=== PATIENT | female | born 1930 | race Caucasian/White ===

== ENCOUNTER 2020-10-18 06:33 | Inpatient (IN) ==
--- NOTE | 2020-10-18 07:32 | Emergency Department Note ---
Abdominal Pain HPI General Chief Complaint: Abdominal Pain Stated Complaint: ABD pain Time Seen by Provider: 10/18/20 07:10 Source: patient and EMS Mode of arrival: EMS Limitations: no limitations History of Present Illness HPI Narrative: 89-year-old female rise from assisted with chief complaint left lower quadrant/groin pain. History is somewhat limited due to patient being very hard of hearing. The pain has been present since last night. Pain is worse with movement. Patient denies any nausea vomiting diarrhea denies any urinary frequency urgency or dysuria. Denies any hematuria. Denies any radiati on of the pain. Denies chest pain or shortness of breath. Patient denies any known injury. Review of records show patient has a history of tubulovillous adenoma of the colon. Related Data Home Medications Medication Instructions Recorded Confirmed potassium chloride 10 mEq 10 meq PO QDAY 12/05/18 07/09/20 tablet,extended release acetaminophen 650 mg 650 mg PO Q6H PRN tab 12/04/19 07/09/20 tablet,extended release Previous Rx's Medication Instructions Recorded cholecalciferol (vitamin D3) 50 2,000 unit PO QAM #180 cap 06/27/19 mcg (2,000 unit) capsule azithromycin 250 mg tablet See Rx Instructions PO .COMPLEX #6 08/19/20 tab lisinopril 10 mg tablet See Rx Instructions PO .COMPLEX 08/25/20 #90 tab lisinopril 20 mg tablet See Rx Instructions .ROUTE 08/25/20 .COMPLEX #30 tab amlodipine 2.5 mg tablet 5 mg PO QHS #60 tab 09/03/20 cholecalciferol (vitamin D3) 50 50 mcg PO QDAY #30 tab 09/03/20 mcg (2,000 unit) tablet citalopram 20 mg tablet 20 mg PO QAM #30 tab 09/03/20 ferrous gluconate 324 mg (38 mg 324 mg PO TID #90 tab 09/03/20 iron) tablet furosemide 20 mg tablet 20 mg PO .COMPLEX #75 tab 09/03/20 omeprazole 20 mg capsule,delayed 20 mg PO QDAY #30 cap 09/03/20 release sitagliptin 100 mg tablet 100 mg PO QDAY #30 tab 09/03/20 spironolactone 25 mg tablet 12.5 mg PO QDAY #15 tab 09/03/20 vit A 1,000 unit-C 200 mg-E 60 1 tab PO QDAY #30 tab 09/03/20 unit-lutein 2 mg and minerals tablet Allergies Allergy/AdvReac Type Severity Reaction Status Date / Time No Known Drug Allergies Allergy Verified 10/18/20 06:59 Review of Systems ROS ROS Narrative: Narrative: All systems ED: reviewed and negative except as stated. Constitutional: Denies fever, chills and sweats Eyes: Denies vision change Cardiovascular: Denies chest pain Respiratory: Denies shortness of breath and cough Gastrointestinal: Reports abdominal pain; Denies vomiting and diarrhea Musculoskeletal: Denies back pain and joint pain Integumentary: Denies rash Neurological: Denies headache and dizziness Endocrine: Denies polydipsia and polyuria Hematological/Lymphatic: Denies easy bleeding and easy bruising PFSH Narrative Patient History Narrative: Narrative: Medical/Surgical/Family History All Active Problems (Updated 10/18/20 @ 09:45 by Jeronimo Peralta MD) Acute hyperkalemia (Acute) Acute left lower quadrant pain (Acute) Muscle weakness (generalized) (Acute) Fibrocystic breast changes (Chronic) Esophageal stricture (Chronic) Anxiety (Chronic) 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) Well adult exam (Chronic) Emotional crisis, acute reaction to stress (Chronic) Special screening for malignant neoplasm of vagina (Chronic) Anxiety and depression (Chronic) Screening for vaginal cancer (Chronic) Abnormal mammogram (Chronic) Tubulovillous adenoma of colon (Chronic) GERD (gastroesophageal reflux disease) (Chronic) Arthritis, rheumatoid (Chronic) Hyperlipidemia, unspecified (Chronic) HTN (hypertension), benign (Chronic) Fibroadenoma of breast (Chronic) Skin lesion (Chronic) Fatigue (Chronic) Arthritis of both hands (Chronic) Weight loss (Chronic) Vitamin D deficiency (Chronic) Stress (Chronic) Vitamin B12 deficiency (Chronic) Hypothyroidism (Chronic) Dizziness (Chronic) Urinary tract infection (Chronic) Hyperparathyroidism, unspecified (Chronic) Hypercalcemia (Chronic) HTN (hypertension) (Chronic) Encounter for long-term (current) use of medications (Chronic) Anemia, iron deficiency (Chronic) Stasis ulcer (Chronic) Cellulitis (Chronic) Fluid retention (Chronic) Ulcer of left lower leg (Chronic) Dermatitis, unspecified (Chronic) Tinea unguium (Chronic) Edema (Chronic) Erythematous condition, unspecified (Chronic) 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) Medical History (Updated 10/18/20 @ 09:45 by Jeronimo Perlata MD) Abnormal mammogram Anemia, iron deficiency Anxiety Anxiety and depression Anxiety with depression Arthritis of both hands Arthritis, rheumatoid Cellulitis Dermal mycosis Dermatitis, unspecified Dizziness Edema Emotional crisis, acute reaction to stress Encounter for long-term (current) use of medications Erythematous condition, unspecified Esophageal stricture Fatigue Fibroadenoma of breast Fibrocystic breast changes Fluid retention GERD (gastroesophageal reflux disease) HTN (hypertension) HTN (hypertension), benign Hypercalcemia Hyperglycemia due to type 2 diabetes mellitus Hyperlipidemia, unspecified Hyperparathyroidism, unspecified Hypothyroidism Osteoarthritis involving multiple joints on both sides of body Screening for vaginal cancer Skin lesion Special screening for malignant neoplasm of vagina Stasis ulcer Stress Tinea unguium Tubulovillous adenoma of colon Ulcer of left lower leg Urinary tract infection Vitamin B12 deficiency Vitamin D deficiency Weight loss Well adult exam Surgical History History of bilateral knee replacement Hx of appendectomy Hx of cholecystectomy (~1996) Hx of colonoscopy (~01/20/06) colonic polyps Hx of hysterectomy Family History Other No pertinent family history Social History Smoking Status: Never smoker Exam Narrative Narrative: Vital Signs reviewed. Constitutional: Awake alert no acute distress well-nourished well-developed Head: Normocephalic, atraumatic Eyes: PERRLA, EOMI, no conjunctivitis Ear: Normal canals and TM's Oropharynx: moist oral mucosa, no edema, no erythema, no exudate Neck: Supple, no lymphadenopathy, no JVD Lungs: Breathing unlabored, lungs clear Cardiac: Regular rate and rhythm, normal distal pulses, GI: Soft tenderness left lower quadrant/groin no obvious hernia nondistended no guarding no rebound Musculoskeletal: No tenderness, no deformities, no edema, full range of motion Back: no CVA or midline tenderness Neuro: Awake alert, cranial nerves II through XII grossly intact, no focal motor or sensory deficits, very hard of hearing Psychiatric: Normal mood and affect Skin: Warm dry no rash, cap refill less than 2 seconds General Limitations: no limitations Course Consultations Consultation #1: Case discussed with Dr. Deluca hospitalist who agrees to admit patient and Requested I place transition orders. He requested patient be admitted as an inpatient. Time: 10:37 Vital Signs Vital signs: Vital Signs Temperature 97.3 F 10/18/20 06:39 Pulse Rate 81 10/18/20 06:39 Respiratory Rate 18 10/18/20 06:39 Blood Pressure 128/71 10/18/20 06:39 Pulse Oximetry (%) 95 10/18/20 06:39 Temperature 97.3 F 10/18/20 06:39 Pulse Rate 74 10/18/20 10:11 Respiratory Rate 12 10/18/20 10:11 Blood Pressure 112/58 10/18/20 10:01 Pulse Oximetry (%) 96 10/18/20 10:11 MDM MDM Narrative Medical decision making narrative: 89-year-old presents with acute onset left groin left lower quadrant abdominal pain. Patient is tender in her left groin. Labs show normal white blood cell count hemoglobin 9.8 metabolic profile notable for sodium 131 potassium six-point CO2 21 BUN 37 creatinine 1.[address] scan of the abdomen did not reveal a cause for pain in her left lower quadrant/left groin. Hyperkalemia was treated with amp of D50, insulin and Kayexalate. Patient required a dose of morphine help with the pain. Patient will be admitted for further evaluation and treatment of the hyperkalemia and pain control. Discussed with the hospitalist, Dr. Deluca who agrees to admit patient. Differential Diagnosis Differential Diagnosis: Hernia, bowel obstruction, diverticulitis, UTI, musculoskeletal Lab Data Result diagrams: 10/18/20 07:26 10/18/20 07:26 Labs: Lab Results 10/18/20 10/18/20 10/18/20 Range/Units 07: 07:26 09:20 WBC 7.2 (4.5-11.0) K/mcL RBC 3.70 L (4.00-5.20) M/mcL Hgb 9.8 L (12.0-15.0) g/dL Hct 32.5 L (36.0-48.0) % MCV 87.8 (80.0-100.0) fL MCH 26.5 (26.0-34.0) pg MCHC 30.2 L (31.0-36.0) g/dL RDW 16.1 H (11.5-14.5) % Plt Count 332 (140-440) K/mcL MPV 9.4 (7.4-10.4) fL Seg Neutrophils % 69 (38-78) % Band Neutrophils % 2 (0-10) % Lymphocytes % 24 (15-49) % Monocytes % (Manual) 4 (1-12) % Eosinophils % (Manual) 1 (0-7) % Platelet Estimate Normal (Normal) RBC Morphology Abnormal A (Normal) Anisocytosis 1+ A (None Seen) Sodium 131 L (133-145) mmol/L Potassium 6.0 H* (3.3-5.1) mmol/L Chloride 99 (96-108) mmol/L Carbon Dioxide 21 L (22-30) mmol/L Anion Gap 11.0 (8.0-16.0) BUN 37 H (8-23) mg/dL Creatinine 1.3 H (0.6-1.1) mg/dL POC Creatinine 1.7 H (0.6-1.2) mg/dL GFR Calculation 36 Glucose 120 H (70-105) mg/dL Calcium 10.5 H (8.6-10.4) mg/dL Total Bilirubin 0.5 (0.1-1.0) mg/dL AST 9 (<32) U/L ALT < 5 (<40) U/L Alkaline Phosphatase 81 (39-117) U/L Total Protein 7.6 (5.9-8.4) gm/dL Albumin 3.5 (3.2-5.2) gm/dL Globulin 4.1 H (2.2-3.7) gm/dL Albumin/Globulin Ratio 0.9 L (1.0-2.3) Lipase 27 (7-60) U/L Urine Color Yellow Urine Appearance Clear (Clear) Urine pH 7.0 (5.0-9.0) Ur Specific [place] 1.010 (1.000-1.035) Urine Protein Negative (Negative) mg/dL Urine Glucose (UA) Negative (Negative) mg/dL Urine Ketones Negative (Negative) mg/dL Urine Occult Blood Negative (Negative) mg/dL Urine Nitrate Negative (Negative) Urine Bilirubin Negative (Negative) mg/dL Urine Urobilinogen 2.0 A mg/dL Ur Leukocyte Esterase Negative (Negative) /ug Urine RBC < 1 (0-3) /hpf Urine WBC 1 (0-4) /hpf Ur Squamous Epith Cells 1 (0-4) /hpf Ur Transition Epith Cell < 1 (0-2) /hpf Urine Bacteria None (0) /hpf Ur Culture Indicated? No EKG Data EKG #1: EKG attestation: Yes I reviewed and interpreted this EKG. and Yes There are no EKG findings of acute coronary syndrome EKG results narrative: EG performed at 7:30 AM shows normal sinus rhythm normal axis normal intervals no ectopy and normal ST segments Discharge Plan Patient/Caregiver Discharge Instructions Pt seen by [employer] WORKER/PA only: No Clinical Impression: Acute hyperkalemia, Acute left lower quadrant pain Patient Disposition: Xfer As Inpt ([facility]) Condition: Good Follow up with: Gloria Montana ARNP [Primary Care Provider] - Prescriptions: No Action cholecalciferol (vitamin D3) 50 mcg (2,000 unit) capsule 2,000 unit PO QAM Qty: 180 RF: 4 acetaminophen [Tylenol Arthritis Pain] 650 mg tablet extended release 650 mg PO Q6H PRNRF: 0 azithromycin [Zithromax Z-Vijay] 250 mg tablet See Rx Instructions PO .COMPLEX Qty: 6 RF: 0 lisinopril 10 mg tablet See Rx Instructions PO .COMPLEX Qty: 90 RF: 4 lisinopril 20 mg tablet See Rx Instructions .ROUTE .COMPLEX Qty: 30 RF: 6 amlodipine [Norvasc] 2.5 mg tablet 5 mg PO QHS Qty: 60 RF: 12 citalopram [Celexa] 20 mg tablet 20 mg PO QAM Qty: 30 RF: 12 ferrous gluconate 324 mg (38 mg iron) tablet 324 mg (38 mg iron) tablet 324 mg PO TID Qty: 90 RF: 12 Januvia 100 mg tablet 100 mg PO QDAY Qty: 30 RF: 12 furosemide [Lasix] 20 mg tablet 20 mg PO .COMPLEX Qty: 75 RF: 12 omeprazole 20 mg capsule,delayed release(DR/EC) 20 mg PO QDAY Qty: 30 RF: 12 spironolactone 25 mg tablet 12.5 mg PO QDAY Qty: 15 RF: 12 Vision Formula (with lutein) 1,000 unit-200 mg-60 unit-2 mg tablet 1 tab PO QDAY Qty: 30 RF: 12 cholecalciferol (vitamin D3) 50 mcg (2,000 unit) tablet 50 mcg PO QDAY Qty: 30 RF: 12 potassium chloride 10 mEq tablet extended release 10 meq PO QDAY RF: 0 Hold Instructions: Doctor's Order
[2020-10-18 07:34] LABS: POC Creatinine 1.7 mg/dL (0.6-1.2)
[2020-10-18 08:01] LABS: Hematocrit 32.5 % (36.0-48.0); Hemoglobin 9.8 g/dL (12.0-15.0); Mean Cell Volume 87.8 fL (80.0-100.0); Mean Corpuscular HGB Conc 30.2 g/dL (31.0-36.0); Mean Platelet Volume 9.4 fL (7.4-10.4); Platelet Count 332 K/mcL (140-440); Red Cell Distribution Width 16.1 % (11.5-14.5); WBC 7.2 K/mcL (4.5-11.0)
[2020-10-18 08:26] LABS: ALT/SGPT < 5 U/L (<40); AST/SGOT 9 U/L (<32); Albumin 3.5 gm/dL (3.2-5.2); Albumin/Globulin Ratio 0.9 (1.0-2.3); Alkaline Phosphatase 81 U/L (39-117); Bilirubin,Total 0.5 mg/dL (0.1-1.0); Blood Urea Nitrogen 37 mg/dL (8-23); Calcium 10.5 mg/dL (8.6-10.4); Carbon Dioxide 21 mmol/L (22-30); Chloride 99 mmol/L (96-108); Globulin 4.1 gm/dL (2.2-3.7); Glomerular Filtration Rate 36; Glucose 120 mg/dL (70-105)
[2020-10-18 08:29] LABS: Anisocytosis 1+ (None Seen); Band Neutrophils % 2 % (0-10); Eosinophils % (Manual) 1 % (0-7); Lymphocytes % 24 % (15-49); Monocytes % (Manual) 4 % (1-12); Platelet Estimate NORMAL (Normal); RBC Morphology ABNORMAL (Normal); Segmented Neutrophils % 69 % (38-78)
[2020-10-18] MEDS ORDERED: INSULIN REGULAR, HUMAN 1 UNIT/0.01 ML UNIT IV ONE (08:37)
[2020-10-18] MEDS ORDERED: SODIUM POLYSTYRENE SULFONATE 15 GM/60 ML SUSPENSION PO ONE (08:37)
[2020-10-18] MEDS ORDERED: DEXTROSE 50% 50 ML SYRINGE IV ONE (08:37)
[2020-10-18] MEDS ORDERED: 0.9 % SODIUM CHLORIDE 1,000 ML IV ONE (09:00)
--- NOTE | 2020-10-18 09:00 | Cat Scan Report ---
CLINICAL INFORMATION: Left lower quadrant pain. COMPARISON: None. TECHNIQUE: 0.625 mm helical slices were obtained from the mid heart through the subtrochanteric regions. Following reconstruction, 2.5 mm sagittal, coronal and axial reformatted images were processed and reviewed at bone and soft tissue windows.The exam was performed using radiation dose optimization techniques including, but not limited to, automated exposure control, adjustment of the mA and/or kV according to patient size and use of iterative reconstruction technique. FINDINGS: Lung bases show scattered subsegmental atelectasis in the lower lobes. There are no pleural effusions. A large hiatal hernia consisting entire gastric fundus and body has transmigrated into the middle mediastinum. The heart is moderately enlarged with heavy mitral annular and valvular calcification. Abdominal images show a 6 mm calcified granuloma in the superior right hepatic lobe. No significant hepatic abnormality. The gallbladder is surgically absent. Intrahepatic and common bile ducts are normal caliber: CBD is 5 mm. The noncontrasted pancreas, both adrenal glands, spleen and aorta are normal in size, configuration and attenuation without focal lesion. Both noncontrasted kidneys are normal and symmetric in size, position, degeneration and attenuation: the right is 10.6 cm in length and the left is 10 cm in length. A 4 mm nonobstructing stone is present within a inferior calyx left kidney. A 2-3 punctate nonobstructing stones within the mid and superior calyces of the left kidney are all less than than 2 mm. Few cysts seen in both kidneys. There is no free air, free fluid or adenopathy Pelvic images show hysterectomy and oophorectomy changes. Urinary bladder is normal. The stomach, small large bowel grossly normal. Bone windows show degenerative changes in the lumbar spine there are no focal osseous lesions. IMPRESSION: 1. No acute disease. 2. Small nonobstructing stones in the calyces of both kidneys. Both kidneys are, otherwise, normal. 3. Small (2.2 cm) right periumbilical hernia containing the anterior wall of a short segment of mid transverse colon 4. Large hiatal hernia with the gastric fundus and body. It has transmigrated into the middle mediastinum. Interpreted and Authenticated by: Bola Greco 10/18/20
[2020-10-18] MEDS ORDERED: ONDANSETRON 4 MG/2 ML VIAL IV ONE (09:19)
[2020-10-18] MEDS ORDERED: morphine 2 MG/ML VIAL IV ONE ×2 (09:19→12:23)
[2020-10-18 10:17] LABS: Appearance,Urine CLEAR (Clear); Bilirubin,Urine Negative (Negative); Color,Urine YELLOW; Culture Indicated,Urine No; Glucose,Urine (UA) Negative (Negative); Ketones,Urine Negative (Negative); Leukocyte Esterase,Urine Negative /ug (Negative); Nitrate,Urine Negative (Negative); Protein,Urine Negative (Negative); Urine Blood Negative (Negative); Urine RBC < 1 /hpf (0-3); Urine Squamous Epithelial Cell 1 /hpf (0-4); Urine Transitional Epi Cells < 1 /hpf (0-2); Urine WBC 1 /hpf (0-4)
[2020-10-18] MEDS ORDERED: ONDANSETRON 4 MG/2 ML VIAL IV PRN ×2 (10:34→11:44)
[2020-10-18] MEDS: morphine 2 MG/ML VIAL IV PRN (11:12)
--- NOTE | 2020-10-18 11:42 | Internal Med History&Physical ---
HPI History of Present Illness Patient information: Note initiated : 10/18/20 at 11:28 am Service Date, if different from initiated Date: [] Patient: Vanessa Roblero a 89 y/o F admitted on for Abdominal Pain . Chief Complaint: [] History of present illness: Ms. Roblero is a 89 year old F Presents to the ED from [facility] for left lower quadrant pain /groin pain. History is extremely difficult to obtain from patient history of severe hearing impairment but per her and her brother sounds like she had pain develop at midnight and at sharp. CT abdomen pelvis unremarkable Further work-up revealed mild hyponatremia and hyperkalemia although she is on lisinopril and potassium supplementation. 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) Well adult exam (Chronic) Emotional crisis, acute reaction to stress (Chronic) Special screening for malignant neoplasm of vagina (Chronic) Anxiety and depression (Chronic) Screening for vaginal cancer (Chronic) Abnormal mammogram (Chronic) Tubulovillous adenoma of colon (Chronic) GERD (gastroesophageal reflux disease) (Chronic) Arthritis, rheumatoid (Chronic) Hyperlipidemia, unspecified (Chronic) HTN (hypertension), benign (Chronic) Fibroadenoma of breast (Chronic) Skin lesion (Chronic) Fatigue (Chronic) Arthritis of both hands (Chronic) Weight loss (Chronic) Vitamin D deficiency (Chronic) Stress (Chronic) Vitamin B12 deficiency (Chronic) Hypothyroidism (Chronic) Dizziness (Chronic) Urinary tract infection (Chronic) Hyperparathyroidism, unspecified (Chronic) Hypercalcemia (Chronic) HTN (hypertension) (Chronic) Encounter for long-term (current) use of medications (Chronic) Anemia, iron deficiency (Chronic) Stasis ulcer (Chronic) Cellulitis (Chronic) Fluid retention (Chronic) Ulcer of left lower leg (Chronic) Dermatitis, unspecified (Chronic) Tinea unguium (Chronic) Edema (Chronic) Erythematous condition, unspecified (Chronic) 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) Medical History (Updated 10/18/20 @ 09:45 by Jeronimo Peralta MD) Abnormal mammogram Anemia, iron deficiency Anxiety Anxiety and depression Anxiety with depression Arthritis of both hands Arthritis, rheumatoid Cellulitis Dermal mycosis Dermatitis, unspecified Dizziness Edema Emotional crisis, acute reaction to stress Encounter for long-term (current) use of medications Erythematous condition, unspecified Esophageal stricture Fatigue Fibroadenoma of breast Fibrocystic breast changes Fluid retention GERD (gastroesophageal reflux disease) HTN (hypertension) HTN (hypertension), benign Hypercalcemia Hyperglycemia due to type 2 diabetes mellitus Hyperlipidemia, unspecified Hyperparathyroidism, unspecified Hypothyroidism Osteoarthritis involving multiple joints on both sides of body Screening for vaginal cancer Skin lesion Special screening for malignant neoplasm of vagina Stasis ulcer Stress Tinea unguium Tubulovillous adenoma of colon Ulcer of left lower leg Urinary tract infection Vitamin B12 deficiency Vitamin D deficiency Weight loss Well adult exam Surgical History History of bilateral knee replacement Hx of appendectomy Hx of cholecystectomy (~1996) Hx of colonoscopy (~01/20/06) colonic polyps Hx of hysterectomy Family History Other No pertinent family history Social History (Updated 08/04/19 @ 10:24 by DANII Moura) marital status: occupational status: retired [employer] Home Medications and Allergies Home Medications Medication Instructions Recorded Confirmed Type potassium chloride 10 mEq 10 meq PO QDAY 12/05/18 07/09/20 History tablet,extended release cholecalciferol (vitamin D3) 50 2,000 unit PO QAM #180 cap 06/27/19 07/09/20 Rx mcg (2,000 unit) capsule acetaminophen 650 mg 650 mg PO Q6H PRN tab 12/04/19 07/09/20 History tablet,extended release azithromycin 250 mg tablet See Rx Instructions PO .COMPLEX #6 08/19/20 Rx tab lisinopril 10 mg tablet See Rx Instructions PO .COMPLEX 08/25/20 Rx #90 tab lisinopril 20 mg tablet See Rx Instructions .ROUTE 08/25/20 Rx .COMPLEX #30 tab amlodipine 2.5 mg tablet 5 mg PO QHS #60 tab 09/03/20 Rx cholecalciferol (vitamin D3) 50 50 mcg PO QDAY #30 tab 09/03/20 Rx mcg (2,000 unit) tablet citalopram 20 mg tablet 20 mg PO QAM #30 tab 09/03/20 Rx ferrous gluconate 324 mg (38 mg 324 mg PO TID #90 tab 09/03/20 Rx iron) tablet furosemide 20 mg tablet 20 mg PO .COMPLEX #75 tab 09/03/20 Rx omeprazole 20 mg capsule,delayed 20 mg PO QDAY #30 cap 09/03/20 Rx release sitagliptin 100 mg tablet 100 mg PO QDAY #30 tab 09/03/20 Rx spironolactone 25 mg tablet 12.5 mg PO QDAY #15 tab 09/03/20 Rx vit A 1,000 unit-C 200 mg-E 60 1 tab PO QDAY #30 tab 09/03/20 Rx unit-lutein 2 mg and minerals tablet Allergies Allergy/AdvReac Type Severity Reaction Status Date / Time No Known Drug Allergies Allergy Verified 10/18/20 06:59 EXAM Constitutional Vitals: Temp Pulse Resp BP Pulse Ox 97.3 F 72 10 L 121/59 97 10/18/20 06:39 10/18/20 10:52 10/18/20 10:52 10/18/20 10:46 10/18/20 10:52 Exam: General: Alert, Awake, No acute Distress Eyes/N/T: EOMI, PERRL, dry MM Head/Neck: neck supple, normocephalic atraumatic CV: RRR, No murmurs, normal s1/s2 Pulm: Clear b/l, no wheezing/rhonchi/rales Abd: soft, nontender, +BS x4 Ext: no clubbing/cyanosis/edema, no pain to palp of lateral hip Neuro: Alert, no focal deficits, moves all extremities, CN 2-12 grossly intact, symmetrical strength b/l upper/lower, sensations intact b/l upper/lower Skin: warm/dry DATA Data Completed and Pending Labs: Labs from last 24 hours 10/18/20 10/18/20 10/18/20 09:20 07:26 07:26 WBC 7.2 RBC 3.70 L Hgb 9.8 L Hct 32.5 L MCV 87.8 MCH 26.5 MCHC 30.2 L RDW 16.1 H Plt Count 332 MPV 9.4 Seg Neutrophils % 69 Band Neutrophils % 2 Lymphocytes % 24 Monocytes % (Manual) 4 Eosinophils % (Manual) 1 Platelet Estimate Normal RBC Morphology Abnormal A Anisocytosis 1+ A Sodium 131 L Potassium 6.0 H* Chloride 99 Carbon Dioxide 21 L Anion Gap 11.0 BUN 37 H Creatinine 1.3 H POC Creatinine 1.7 H GFR Calculation 36 Glucose 120 H Calcium 10.5 H Total Bilirubin 0.5 AST 9 ALT < 5 Alkaline Phosphatase 81 Total Protein 7.6 Albumin 3.5 Globulin 4.1 H Albumin/Globulin Ratio 0.9 L Lipase 27 Urine Color Yellow Urine Appearance Clear Urine pH 7.0 Ur Specific [place] 1.010 Urine Protein Negative Urine Glucose (UA) Negative Urine Ketones Negative Urine Occult Blood Negative Urine Nitrate Negative Urine Bilirubin Negative Urine Urobilinogen 2.0 A Ur Leukocyte Esterase Negative Urine RBC < 1 Urine WBC 1 Ur Squamous Epith Cells 1 Ur Transition Epith Cell < 1 Urine Bacteria None Ur Culture Indicated? No A/P Narrative A/P Narrative: A: *Hyperkalemia: On ACEI and potassium supplements *Hyponatremia: *ACE on CKD III: *Left groin pain: ?kidney stone -CT a/p unremarkable other than DJD and small non-obstructing stones left kidney -UA no blood and unremarkable *Hypercalcemia, mild: On vitamin D supplementation *HTN: On Norvasc/lisinopril, Lasix/Aldactone *Depression/anxiety: On SSRI *GERD: *DM: P: -IVF -f/u electrolytes -?MRI pelvis, will start with renal u/s evaluate ureter for stones -hold ACEI, con norvasc -Hold diuretics and d/c potassium supplementation -d/c vitamin D supplementation -SSI -pt/ot -ppx: Lovenox/home PPI Time Spent With Patient Time: Total time spent is greater than 50% in coordination of care (as katie edwards) at patient's floor/unit and/or counseling patient:
[2020-10-18] MEDS ORDERED: POTASSIUM CHLORIDE 40 MEQ in DEXTROSE 5% IN WATER 500 ML IV PRN (11:44)
[2020-10-18] MEDS ORDERED: IPRATROPIUM/ALBUTEROL 3 ML AMPUL.NEB NEB PRN (11:44)
[2020-10-18] MEDS ORDERED: SENNOSIDES 1 TABLET PO PRN (11:44)
[2020-10-18] MEDS ORDERED: POTASSIUM CHLORIDE 20 MEQ TABLET PO PRN ×2 (11:44)
[2020-10-18] MEDS ORDERED: MAGNESIUM SULFATE 2 GM/50 ML BAG IV PRN (11:44)
[2020-10-18] MEDS ORDERED: POLYETHYLENE GLYCOL 3350 17 GM PACKET PO PRN (11:44)
[2020-10-18 11:51] LABS: POC Blood Urea Nitrogen 35 mg/dL (6-20); POC CO2 21 mmol/L (22-30); POC Calcium, Ionized 1.28 mmEq/L (1.16-1.32); POC Chloride 110 mEq/L (96-108); POC Creatinine 1.3 mg/dL (0.6-1.2); POC Glucose, Random 100 mg/dL (70-105); POC Hematocrit 33 % (36-48); POC Potassium 5.7 mEql/L (3.3-5.1); POC Sodium 137 mEq/L (133-145)
[2020-10-18] MEDS: 0.9 % SODIUM CHLORIDE 10 ML SYRINGE IV SCH ×2 (13:12→21:04)
[2020-10-18] MEDS: 0.9 % SODIUM CHLORIDE 1,000 ML IV SCH (13:19)
[2020-10-18] MEDS: HYDROcodone/APAP 5/325MG TABLET PO PRN (13:28)
--- NOTE | 2020-10-18 13:40 | EKG ---
[facility] Test Date: 2020-10-18 Pat Name: Vanessa Roblero Department: ED Room: Gender: Female [place] [employer]: TOMASZ : [id number] Requested By: Jeronimo Peralta Order Number: [id number] Reading MD: Deangelo Root M.D. Measurements Intervals [place] Rate: 72 P: 44 KS: 180 QRS: 10 QRSD: 76 T: 37 QT: 380 QTc: 416 Interpretive Statements SINUS RHYTHM NO PRIOR TRACING FOR COMPARISON EARLY R-WAVE TRANSITION, V1-V2 BORDERLINE TRACING Electronically Signed On 10-18-2020 13:40:43 PDT by Deangelo Root M.D. /[id number]/[email or web address]/[id number]
[2020-10-18] MEDS ORDERED: DEXTROSE 31 GM ORAL.SUSP PO PRN (15:24)
[2020-10-18] MEDS ORDERED: DEXTROSE 50% 50 ML VIAL IV PRN (15:24)
[2020-10-18] MEDS: INSULIN LISPRO 1 UNIT/0.01 ML UNIT SQ SCH ×2 (17:00→20:42)
[2020-10-18] MEDS: DOCUSATE SODIUM 100 MG CAPSULE PO SCH (20:43)
[2020-10-18] MEDS ORDERED: amLODIPine 5 MG TABLET PO SCH (21:00)
[2020-10-19] MEDS: 0.9 % SODIUM CHLORIDE 1,000 ML IV SCH ×2 (01:20→09:15)
[2020-10-19] MEDS: 0.9 % SODIUM CHLORIDE 10 ML SYRINGE IV SCH ×3 (05:32→20:58)
[2020-10-19 06:58] LABS: Basophils # (Auto) 0.03 K/mcL (0.00-0.20); Basophils % (Auto) 0.5 % (0.0-2.0); Eosinophils # (Auto) 0.13 K/mcL (0.00-0.70); Eosinophils % (Auto) 2.3 % (0.0-7.0); Hemoglobin 9.2 g/dL (12.0-15.0); Lymphocytes # (Auto) 0.83 K/mcL (1.50-4.80); Lymphocytes % (Auto) 14.5 % (15.0-49.0); Mean Cell Volume 90.4 fL (80.0-100.0); Mean Corpuscular HGB Conc 28.8 g/dL (31.0-36.0); Mean Platelet Volume 9.5 fL (7.4-10.4); Monocytes % (Auto) 12.2 % (1.0-12.0); Neutrophils % (Auto) 70.5 % (38.0-78.0); Platelet Count 337 K/mcL (140-440); RBC 3.54 M/mcL (4.00-5.20); Red Cell Distribution Width 16.1 % (11.5-14.5); WBC 5.7 K/mcL (4.5-11.0)
[2020-10-19] MEDS: INSULIN LISPRO 1 UNIT/0.01 ML UNIT SQ SCH ×4 (07:21→20:21)
[2020-10-19 07:35] LABS: ALT/SGPT < 5 U/L (<40); AST/SGOT 11 U/L (<32); Albumin 3.1 gm/dL (3.2-5.2); Albumin/Globulin Ratio 0.8 (1.0-2.3); Alkaline Phosphatase 84 U/L (39-117); Bilirubin,Direct < 0.2 mg/dL (0-0.3); Bilirubin,Total 0.5 mg/dL (0.1-1.0); Blood Urea Nitrogen 22 mg/dL (8-23); Calcium 10.2 mg/dL (8.6-10.4); Carbon Dioxide 21 mmol/L (22-30); Chloride 107 mmol/L (96-108); Globulin 3.8 gm/dL (2.2-3.7); Glomerular Filtration Rate 57; Glucose 109 mg/dL (70-105); Lactate Dehydrogenase 143 U/L (135-225); Phosphorous 2.7 mg/dL (2.5-4.5); Triglycerides 157 mg/dL (<150); Uric Acid 6.1 mg/dL (2.5-8.0)
[2020-10-19] MEDS: CITALOPRAM 20 MG TABLET PO SCH (08:28)
[2020-10-19] MEDS: PANTOPRAZOLE 40 MG TABLET PO SCH (08:28)
[2020-10-19] MEDS: ENOXAPARIN 40 MG/0.4 ML SYRINGE SQ SCH (08:28)
[2020-10-19] MEDS: DOCUSATE SODIUM 100 MG CAPSULE PO SCH ×3 (08:31→20:20)
[2020-10-19] MEDS ORDERED: SODIUM POLYSTYRENE SULFONATE 15 GM/60 ML SUSPENSION PO ONE (08:44)
--- NOTE | 2020-10-19 08:46 | Internal Med Progress Note ---
SUBJECTIVE Subjective Patient information: Note initiated : 10/19/20 at 8:40 am Service Date, if different from initiated Date: [] Patient: Vanessa Roblero a 89 y/o F admitted on 10/18/20 for Abdominal Pain . Chief Complaint: [] Interval history: History of present illness: Ms. Roblero is a 89 year old F Presents to the ED from [facility] for left lower quadrant pain /groin pain. History is extremely difficult to obtain from patient history of severe hearing impairment but per her and her brother sounds like she had pain d evelop at midnight and at sharp. CT abdomen pelvis unremarkable Further work-up revealed mild hyponatremia and hyperkalemia although she is on lisinopril and potassium supplementation. 10/19 patient sitting up in chair. Feels her groin pain is improving. She was able to walk to the bathroom with the her walker Brittany. No new complaints. Her potassium is still elevated but improved. Her renal function is improved. Calcium is improved Constitutional Vitals: Vital Signs Temp Pulse Resp BP Pulse Ox 98.5 F 82 20 96/57 89 L 10/19/20 04:07 10/19/20 04:07 10/19/20 04:07 10/19/20 04:07 10/19/20 04:07 Period Temp Pulse Resp BP Sys/De Oliveira Pulse Ox Last 24 Hr 97.3 F-98.5 F 68-87 10-21 96-137/54-89 89-99 Intake and Output 10/18/20 10/19/20 10/19/20 21:59 05:59 13:59 Intake Total 220 1050 Output Total 1 1 Balance 219 1049 Weight 75.841 kg Intake & Output: Intake & Output 10/18/20 10/19/20 10/19/20 21:59 05:59 13:59 Intake Total 220 1050 Output Total 1 1 Balance 219 1049 Weight 75.841 kg Intake: IV 1000 Sodium Chloride 0.9% 1,000 ml @ 1000 84 mls/hr IV .[id number] CATHLEEN Rx#: [id number] Oral 220 50 Output: # of times incontinent of urine 1 1 Other: Meal Dinner Percent of Meal Consumed 35% Feeding Ability Assist with Tray Set Up Exam: General: Alert, Awake, No acute Distress Eyes/N/T: EOMI, Head/Neck: neck supple, CV: RRR, No murmurs, Pulm: Clear b/l, no wheezing/rhonchi/rales Abd: soft, nontender, +BS x4 Ext: no clubbing/cyanosis/edema, Neuro: Alert, no focal deficits, moves all extremities, Skin: warm/dry OBJ DATA Labs CBC & Chem 7: 10/19/20 05:15 10/19/20 05:15 Labs: Abnormal Lab Results 10/19/20 10/19/20 10/18/20 05:15 05:15 11:35 RBC 3.54 L Hgb 9.2 L Hct 32.0 L POC Hct 33 L MCHC 28.8 L RDW 16.1 H Lymph % (Auto) 14.5 L [place] % (Auto) 12.2 H Lymph # (Auto) 0.83 L RBC Morphology Anisocytosis Sodium POC Potassium 5.7 H Potassium 5.8 H POC Chloride 110 H Carbon Dioxide 21 L POC Total CO2 21 L POC BUN 35 H BUN Creatinine POC Creatinine 1.3 H Glucose 109 H Calcium Albumin 3.1 L Globulin 3.8 H Albumin/Globulin Ratio 0.8 L Triglycerides 157 H Urine Urobilinogen 10/18/20 10/18/20 10/18/20 09:20 07:26 07:26 RBC 3.70 L Hgb 9.8 L Hct 32.5 L POC Hct MCHC 30.2 L RDW 16.1 H Lymph % (Auto) [place] % (Auto) Lymph # (Auto) RBC Morphology Abnormal A Anisocytosis 1+ A Sodium 131 L POC Potassium Potassium 6.0 H* POC Chloride Carbon Dioxide 21 L POC Total CO2 POC BUN BUN 37 H Creatinine 1.3 H POC Creatinine 1.7 H Glucose 120 H Calcium 10.5 H Albumin Globulin 4.1 H Albumin/Globulin Ratio 0.9 L Triglycerides Urine Urobilinogen 2.0 A Meds: Medications Hydrocodone Bitart/Acetaminophen (Hydrocodone/Apap 5/325mg Tablet) 1 tab PO Q4HP PRN PRN Reason: PAIN LEVEL 3-6 Last Admin: 10/18/20 13:28 Dose: 1 tab Documented by: Albuterol/Ipratropium (Ipratropium/Albuterol 3 Ml Ampul.Neb) 3 ml NEB Q4HP PRN PRN Reason: Shortness Of Breath Amlodipine Besylate (Amlodipine 5 Mg Tablet) 5 mg PO HS [facility] Last Admin: 10/18/20 20:43 Dose: 5 mg Documented by: Citalopram Hydrobromide (Citalopram 20 Mg Tablet) 20 mg PO QAM [facility] Last Admin: 10/19/20 08:28 Dose: 20 mg Documented by: Dextrose (Dextrose 50% 50 Ml Vial) 0 ml IV UD PRN PRN Reason: Hypoglycemia Diagnostic Test (Pha) (Accu-Chek 1 Each Strip) 1 each FS [facility] Last Admin: 10/19/20 07:18 Dose: 1 each Documented by: Docusate Sodium (Docusate Sodium 100 Mg Capsule) 100 mg PO BID [facility] Last Admin: 10/19/20 08:31 Dose: Not Given Documented by: Enoxaparin Sodium (Enoxaparin 40 Mg/0.4 Ml Syringe) 40 mg SQ DAILY [facility] Last Admin: 10/19/20 08:28 Dose: 40 mg Documented by: Glucose (Dextrose 31 Gm Oral.Susp) 15 gm PO PRN PRN PRN Reason: Hypoglycemia Sodium Chloride (Sodium Chloride 0.9%) 1,000 mls @ 84 mls/hr IV .[id number] [facility] Last Admin: 10/19/20 01:20 Dose: 84 mls/hr Documented by: Potassium Chloride 40 meq/ (Dextrose) 520 mls @ 130 mls/hr IV UD PRN PRN Reason: Potassium < 3 Magnesium Sulfate (Magnesium Sulfate) 2 gm in 50 mls @ 50 mls/hr IV UD PRN PRN Reason: Magnesium </= 1.6 Insulin Human Lispro (Insulin Lispro 1 Unit/0.01 Ml Unit) 0 unit SQ [facility]; Protocol Last Admin: 10/19/20 07:21 Dose: Not Given Documented by: Morphine Sulfate (Morphine 2 Mg/Ml Vial) 2 mg IV Q4HP PRN; Protocol PRN Reason: Per Pain Protocol Last Admin: 10/18/20 11:12 Dose: 2 mg Documented by: Ondansetron HCl (Ondansetron 4 Mg/2 Ml Vial) 4 mg IV Q4HP PRN PRN Reason: Nausea And Vomiting Pantoprazole Sodium (Pantoprazole 40 Mg Tablet) 40 mg PO QAMAC [facility] Last Admin: 10/19/20 08:28 Dose: 40 mg Documented by: Polyethylene Glycol (Polyethylene Glycol 3350 17 Gm Packet) 17 gm PO DAILYP PRN PRN Reason: Constipation Potassium Chloride (Potassium Chloride 20 Meq Tablet) 40 meq PO UD PRN PRN Reason: Potssium is 3-3.5 Potassium Chloride (Potassium Chloride 20 Meq Tablet) 40 meq PO UD PRN PRN Reason: Potassium < 3 Senna (Sennosides 1 Tablet) 2 tab PO DAILYP PRN PRN Reason: Constipation Sodium Chloride (0.9 % Sodium Chloride 10 Ml Syringe) 10 ml IV Q8 CATHLEEN Last Admin: 10/19/20 05:32 Dose: Not Given Documented by: A/P Narrative A/P Narrative: A: *Hyperkalemia: On ACEI & potassium supplements -improving *Hyponatremia: improved *ACE on CKD III: resolved *Anemia, chronic: *Left groin pain: ?etiology - MSK of Osteoarthritis -CT a/p unremarkable other than DJD and small non-obstructing stones left kidney but none in ureter -UA no blood and unremarkable *Hypercalcemia, mild: On vitamin D supplementation. resolved *HTN: On Norvasc/lisinopril, Lasix/Aldactone *Depression/anxiety: On SSRI *GERD: *DM: P: -IVF will d/c -f/u electrolytes -MRI pelvis -hold ACEI, hold norvasc for low bp -Hold diuretics and d/c potassium supplementation -d/c vitamin D supplementation -SSI -pt/ot -ppx: Lovenox/home PPI Time Spent With Patient Time: Total time spent is greater than 50% in coordination of care (as documented) at patient's floor/unit and/or counseling patient: [facility] VTE Deep Vein Thrombosis/Pulmonary Embolism Present on Admission: No
[2020-10-19] MEDS: SODIUM BICARBONATE 650 MG TABLET PO SCH ×3 (09:20→20:19)
--- NOTE | 2020-10-19 12:28 | Discharge Summary ---
Discharge Provider Provider Patient information: Note initiated : 10/19/20 at 12:26 pm Service Date, if different from initiated Date: [] Patient: Vanessa Roblero 89 y/o F admitted on 10/18/20 for Abdominal Pain . Chief Complaint: [] Date of admission: 10/18/20 12:45 Discharge date: 10/20/20 Primary care physician: DANII Moura Consults: 10/18/20 Consult to Physician [CONS] Stat Comment: Consulting Provider: Lupillo Deluca Reason For Exam: Physician to Consult Discharge Meds Discharge Medications Home Medications acetaminophen 650 mg tablet,extended release 650 mg PO Q6H tab 12/04/19 [Hist ory Confirmed 10/18/20 Last Taken Unknown] amlodipine 2.5 mg tablet 5 mg PO QHS #60 tab 09/03/20 [Rx Confirmed 10/18/20 Last Taken Unknown] citalopram 20 mg tablet 20 mg PO QAM #30 tab 09/03/20 [Rx Confirmed 10/18/20 Last Taken Unknown] ferrous gluconate 324 mg (38 mg iron) tablet 324 mg PO TID #90 tab 09/03/20 [Rx Confirmed 10/18/20 Last Taken Unknown] furosemide 20 mg tablet 20 mg PO .COMPLEX #75 tab 09/03/20 [Rx Confirmed 10/18/20 Last Taken Unknown] omeprazole 20 mg capsule,delayed release 20 mg PO QDAY #30 cap 09/03/20 [Rx Confirmed 10/18/20 Last Taken Unknown] sitagliptin 100 mg tablet 100 mg PO QDAY #30 tab 09/03/20 [Rx Confirmed 10/18/20 Last Taken Unknown] vit A 1,000 unit-C 200 mg-E 60 unit-lutein 2 mg and minerals tablet 1 tab PO QDAY #30 tab 09/03/20 [Rx Confirmed 10/18/20 Last Taken Unknown] COURSE Hospital Course Hospital course: Interval history: History of present illness: Ms. Roblero is a 89 year old F Presents to the ED from [facility] for left lower quadrant pain /groin pain. History is extremely difficult to obtain from patient history of severe hearing impairment but per her and her brother sounds like she had pain develop at midnight and at sharp. CT abdomen pelvis unremarkable Further work-up revealed mild hyponatremia and hyperkalemia although she is on lisinopril and potassium supplementation. 10/19 patient sitting up in chair. Feels her groin pain is improving. She was able to walk to the bathroom with the her walker Brittany. No new complaints. Her potassium is still elevated but improved. Her renal function is improved. Calcium is improved 10/20 Feeling better. No new complaints. Wanting to go home. A: *Hyperkalemia: On ACEI & potassium supplements *Hyponatremia: improved *ACE on CKD III: resolved *Anemia, chronic: *Left groin pain: Osteoarthritis vs MSK *Hypercalcemia, mild: On vitamin D supplementation. resolved *HTN: On Norvasc/lisinopril, Lasix/Aldactone *Depression/anxiety: On SSRI *GERD: *DM: Discharge diagnosis: Hyperkalemia hyponatremia acute kidney injury chronic anemia groin pain Secondary discharge diagnosis: Hypercalcemia hypertension depression anxiety GERD diabetes Time Spent with Patient Time attestation: Total time spent providing and/or coordinating discharge services: Time spent: Greater than 30 minutes EXAM Constitutional Vitals: Temp Pulse Resp BP Pulse Ox 98.8 F 83 20 117/60 91 10/19/20 08:00 10/19/20 08:00 10/19/20 08:00 10/19/20 08:00 10/19/20 08:00 Discharge Data Data Completed and Pending Labs on day of discharge: Labs from last 24 hours 10/19/20 10/19/20 05:15 05:15 WBC 5.7 RBC 3.54 L Hgb 9.2 L Hct 32.0 L MCV 90.4 MCH 26.0 MCHC 28.8 L RDW 16.1 H Plt Count 337 MPV 9.5 Neut % (Auto) 70.5 Lymph % (Auto) 14.5 L [place] % (Auto) 12.2 H Eos % (Auto) 2.3 Baso % (Auto) 0.5 Lymph # (Auto) 0.83 L [place] # (Auto) 0.70 Eos # (Auto) 0.13 Baso # (Auto) 0.03 Absolute Neutrophils 4.04 Sodium 137 Potassium 5.8 H Chloride 107 Carbon Dioxide 21 L Anion Gap 9.0 BUN 22 Creatinine 0.9 GFR Calculation 57 Glucose 109 H Uric Acid 6.1 Calcium 10.2 Phosphorus 2.7 Magnesium 2.1 Total Bilirubin 0.5 Direct Bilirubin < 0.2 GGT 33 AST 11 ALT < 5 Alkaline Phosphatase 84 Lactate Dehydrogenase 143 Total Protein 6.9 Albumin 3.1 L Globulin 3.8 H Albumin/Globulin Ratio 0.8 L Triglycerides 157 H Discharge Plan Patient/Caregiver Discharge Instructions Activity: increase activity as tolerated Diet: Consistent Carbohydrate Prescriptions: Continued acetaminophen [Tylenol Arthritis Pain] 650 mg tablet extended release 650 mg PO Q6H RF: 0 amlodipine [Norvasc] 2.5 mg tablet 5 mg PO QHS Qty: 60 RF: 12 citalopram [Celexa] 20 mg tablet 20 mg PO QAM Qty: 30 RF: 12 ferrous gluconate 324 mg (38 mg iron) tablet 324 mg (38 mg iron) tablet 324 mg PO TID Qty: 90 RF: 12 Januvia 100 mg tablet 100 mg PO QDAY Qty: 30 RF: 12 furosemide [Lasix] 20 mg tablet 20 mg PO .COMPLEX Qty: 75 RF: 12 omeprazole 20 mg capsule,delayed release(DR/EC) 20 mg PO QDAY Qty: 30 RF: 12 Vision Formula (with lutein) 1,000 unit-200 mg-60 unit-2 mg tablet 1 tab PO QDAY Qty: 30 RF: 12 Discontinued cholecalciferol (vitamin D3) 50 mcg (2,000 unit) capsule 2,000 unit PO QAM Qty: 180 RF: 4 lisinopril 10 mg tablet See Rx Instructions PO .COMPLEX Qty: 90 RF: 4 lisinopril 20 mg tablet See Rx Instructions .ROUTE .COMPLEX Qty: 30 RF: 6 spironolactone 25 mg tablet 12.5 mg PO QDAY Qty: 15 RF: 12 cholecalciferol (vitamin D3) 50 mcg (2,000 unit) tablet 50 mcg PO QDAY Qty: 30 RF: 12 potassium chloride 10 mEq tablet extended release 10 meq PO QDAY RF: 0 Hold Instructions: Doctor's Order Follow Up Plan Follow up with: Gloria Montana ARNP [Primary Care Provider] - Patient Disposition: Xfer SNF Prognosis: Fair Rehab Potential: Fair I certify that the patient requires SNF services: Yes Overall status at discharge: patient is progressing back to baseline Discharge Orders: Discharge Order (Routine); Ordered 10/20/20 Ordered By: Lupillo Deluca [facility] VTE Deep Vein Thrombosis/Pulmonary Embolism Present on Admission: No
[2020-10-19] MEDS: HYDROcodone/APAP 5/325MG TABLET PO PRN ×2 (14:32→20:55)
--- NOTE | 2020-10-19 15:30 | Magnetic Resonance Report ---
History: Pelvic pain in the left groin TECHNIQUE: Multiplanar imaging was performed using multiple pulse sequences. FINDINGS: The uterus and ovaries are surgically absent. There is no evidence of intrapelvic mass. No ascites is present. There are a few noninflamed diverticula in the descending and sigmoid colon. Urinary bladder is normally distended and has smooth wall with no intraluminal mass. There is a subtle fat-containing left inguinal hernia. There is no associated inflammation and no entrapment of the bowel. No other abdominal wall defect is present. Left groin is otherwise normal. There is symmetric atrophy, with fatty infiltration of the musculature surrounding the pelvic bones and hips. Small amount of fluid is present in both hip joints. This may relate to underlying low-grade osteoarthritis. There is a scoliotic curvature in the lumbar spine with disc space narrowing and spur formation from L2-3 through L5-S1. Visualized portions of the sacral plexus are normal. No adenopathy is seen. IMPRESSION: No acute abnormality Interpreted and Authenticated by: Todd Gong 10/19/20
[2020-10-19] MEDS: morphine 2 MG/ML VIAL IV PRN (23:08)
[2020-10-20] MEDS: 0.9 % SODIUM CHLORIDE 10 ML SYRINGE IV SCH ×2 (04:08→14:24)
[2020-10-20 06:58] LABS: Blood Urea Nitrogen 15 mg/dL (8-23); Calcium 9.9 mg/dL (8.6-10.4); Carbon Dioxide 22 mmol/L (22-30); Chloride 106 mmol/L (96-108); Glomerular Filtration Rate 65; Glucose 106 mg/dL (70-105)
[2020-10-20] MEDS: INSULIN LISPRO 1 UNIT/0.01 ML UNIT SQ SCH ×2 (09:02→12:29)
[2020-10-20] MEDS: CITALOPRAM 20 MG TABLET PO SCH (09:08)
[2020-10-20] MEDS: PANTOPRAZOLE 40 MG TABLET PO SCH (09:08)
[2020-10-20] MEDS: HYDROcodone/APAP 5/325MG TABLET PO PRN (09:08)
[2020-10-20] MEDS: DOCUSATE SODIUM 100 MG CAPSULE PO SCH (09:09)
[2020-10-20] MEDS: morphine 2 MG/ML VIAL IV PRN (09:09)
[2020-10-20] MEDS: ENOXAPARIN 40 MG/0.4 ML SYRINGE SQ SCH (09:09)
== END 2020-10-20 16:05 | DRG 641 ==
LOC: ED 06:33 → MEDSUR 12:45
PROVIDERS: ADMIT Internal Medicine; ATTEND Internal Medicine